=== PATIENT | female | born 1970 | race Caucasian/White ===

== ENCOUNTER 2019-01-02 07:19 | Emergency (ER) | payer OTHER ==
[~2019-01-02] VITALS: Ht 170.2 cm; Wt 95.3 kg
[2019-01-02] MEDS ORDERED: BLOOD PRESSURE MED (07:30)
--- NOTE | 2019-01-02 07:32 | NUR ---
Dr Yap at the bedside for MSE.
[2019-01-02 08:30] VITALS: BP 138/75
--- NOTE | 2019-01-02 08:30 | NUR ---
Patient discharged to home in stable conditon. Written and verbal after care instructions given. Patient verbalizes understanding of instructions.
== END 2019-01-02 08:31 | disposition home or self-care (01) ==
LOC: ER 07:19
DX: S20.211A Contusion of right front wall of thorax, initial encounter (principal); X58.XXXA Exposure to other specified factors, initial encounter; Y93.89 Activity, other specified; Y92.89 Other specified places as the place of occurrence of the external cause; Y99.8 Other external cause status
CPT/HCPCS: 71101; A4663

== ENCOUNTER 2021-02-23 00:54 | Emergency (ER) | payer OTHER ==
[~2021-02-23] VITALS: Ht 170.2 cm; Wt 102.1 kg
[~2021-02-23 00:54] MED LIST: BLOOD PRESSURE MED
--- NOTE | 2021-02-23 01:00 | NUR ---
Patient arrived at the ER with cc of right twisted ankle. Patient states she was walking up the stairs when she turned around, and had a mechanical slip and fall down the stairs. She states that she twisted her right ankle, hit her right leg and right arm falling down. Denies head, neck, and back pain.
--- NOTE | 2021-02-23 01:15 | NUR ---
Dr. Ramey on bedside for MSE.
[2021-02-23 01:44] VITALS: BP 134/86
--- NOTE | 2021-02-23 01:44 | NUR ---
Patient discharged to home in stable condition. Written and verbal after care instructions given. Patient verbalizes understanding of instructions. Stressed follow up or return to ER for worsening s/s. Patient ambulated fr the ER with cutches. All belongings with patient.
== END 2021-02-23 01:42 | disposition home or self-care (01) ==
LOC: ER 00:58
DX: S93.401A Sprain of unspecified ligament of right ankle, initial encounter (principal); W01.0XXA Fall on same level from slipping, tripping and stumbling without subsequent striking against object, initial encounter; Y92.89 Other specified places as the place of occurrence of the external cause
CPT/HCPCS: 73610; A4663